=== PATIENT | female | born 1990 | race Caucasian/White ===

== ENCOUNTER 2019-10-27 16:33 | Emergency (ER) | payer BC, OTHER ==
[~2019-10-27] VITALS: Ht 167.6 cm; Wt 93.0 kg
[2019-10-27] MEDS ORDERED: SODIUM CHLORIDE 0.9% 1000ML 1,000 ML IV SCH (17:15)
[2019-10-27] MEDS ORDERED: SODIUM CHLORIDE 0.9% 1000ML 1,000 ML ONE (17:30)
[2019-10-27] MEDS ORDERED: POTASSIUM CHLORIDE 20 MEQ TAB CR PO STA (17:55)
[2019-10-27] MEDS ORDERED: POTASSIUM CHLORIDE 10MEQ/100ML 100 ML ONE (17:57)
[2019-10-27] MEDS ORDERED: POTASSIUM CHLORIDE 20 MEQ TAB CR PO ONE ×3 (17:57→18:07)
--- NOTE | 2019-10-27 18:10 | NUR ---
US AT BEDSIDE
[2019-10-27] MEDS ORDERED: POTASSIUM CHLORIDE 10MEQ/100ML 100 ML IV ONE (18:15)
[2019-10-27 18:45] LABS: MAGNESIUM 1.8 MG/DL (1.3-2.1)
--- NOTE | 2019-10-27 18:52 | NUR ---
REPORT TO KASSANDRA FERMIN
[2019-10-27 19:05] LABS: THYROID STIMULATING HORMONE 0.696 uIU/mL (0.350-4.940)
--- NOTE | 2019-10-27 19:13 | Diagnostic Imaging Report ---
EXAM: Bilateral Lower Extremity Venous Duplex Ultrasound INDICATION: Heart palpitation, chest pain, concern for pulmonary embolus COMPARISON: TECHNIQUE: Montesinos scale, color Doppler and spectral waveform analysis of the bilateral lower extremities deep venous system was performed. FINDINGS: Right Lower Extremity: Common Femoral: Fully compressible with normal spontaneous waveforms. Proximal Greater Saphenous: Fully compressible. Femoral: Fully compressible with normal spontaneous waveforms. Normal response to augmentation. Proximal Deep Femoral: Normal spontaneous waveforms. Popliteal: Fully compressible with normal spontaneous waveforms. Left Lower Extremity: Common Femoral: Fully compressible with normal spontaneous waveforms. Proximal Greater Saphenous: Fully compressible. Femoral: Fully compressible with normal spontaneous waveforms. Normal response to augmentation. Proximal Deep Femoral: Normal spontaneous waveforms. Popliteal: Fully compressible with normal spontaneous waveforms. IMPRESSION: No evidence of deep venous thrombosis above the bilateral calves. Signed by: Sj Goodman DO on 10/27/2019 7:10 PM
--- NOTE | 2019-10-27 19:14 | NUR ---
Urine culture collected and awaiting transport to the Lab at the hospital.
[2019-10-27] MEDS ORDERED: SODIUM CHLORIDE 0.9% 50ML 50 ML ONE (20:30)
[2019-10-27] MEDS ORDERED: IOPAMIDOL 370 MG/ML 200 ML INFUS..BTL INJ ONE (20:30)
--- NOTE | 2019-10-27 20:38 | Diagnostic Imaging Report ---
EXAM: CT Chest WITH contrast (PE Protocol) INDICATION: Heart palpitation, chest pain, COMPARISON: None TECHNIQUE: Chest was scanned utilizing a multidetector helical scanner from the lung apex through the level of the diaphragm after administration of IV contrast. Thin section reconstructions were obtained with special concentration on the pulmonary arteries. Coronal and sagittal reformations were obtained. Pulmonary embolism protocol was performed. IV CONTRAST: 100 mL of Omnipaque 350 COMPLICATIONS: None RADIATION DOSE: Total DLP: 519 mGy*cm Estimated effective dose: (DLP x 0.014 x size factor) mSv CTDIvol has been reviewed. It is below the limits set by the Radiation Protocol Committee (RPC). Dose modulation, iterative reconstruction, and/or weight based adjustment of the mA/kV was utilized to reduce the radiation dose to as low as reasonably achievable. FINDINGS: LINES/ TUBES: None. LUNGS AND AIRWAYS: No filling defect is identified within the pulmonary arteries to the segmental level. The lungs are unremarkable. Airways are normal. PLEURA: The pleural spaces are clear. HEART AND MEDIASTINUM: The thyroid gland is normal. No mediastinal, hilar or axillary lymphadenopathy. The heart is normal in size. There is no pericardial effusion. Main pulmonary artery measures 2.8 cm in diameter and the ascending aorta measures 3 cm. UPPER ABDOMEN: Unremarkable BONES: The visualized bony thorax is within normal limits. SOFT TISSUES: Unremarkable. IMPRESSION: No pulmonary emboli. No acute CT thoracic abnormality. Signed by: Sj Goodman DO on 10/27/2019 8:34 PM
== END 2019-10-27 21:06 | disposition home or self-care (01) ==
LOC: FSED 16:33
DX: R00.2 Palpitations (principal); R07.89 Other chest pain; E87.6 Hypokalemia; K52.9 Noninfective gastroenteritis and colitis, unspecified
CPT/HCPCS: 36415; 71260; 80053; 81003; 83735; 84443; 85025; 87086; 93005; 93970; 99284; J3480; J7030; Q9967